=== PATIENT | male | born 1945 | race American Indian/Alaskan Native ===

== ENCOUNTER 2018-10-01 13:47 | Emergency (ER) | payer MEDICARE ==
--- NOTE | 2018-10-01 14:03 | Consultation ---
History of Present Illness Consult date: 10/01/18 Medications and Allergies Allergies Allergy/AdvReac Type Severity Reaction Status Date / Time No Known Allergies Allergy Unverified 10/01/18 13:50 - Assessment Assessment Interval: Baseline - Level of Consciousness 1a. Level of Consciousness: arousable/minor stimuli - LOC Questions 1b. LOC Questions: answers both correctly - LOC Command 1c. LOC Commands: performs tasks correctly - Best Gaze 2. Best Gaze: normal - Visual 3. Visual: no visual loss - Facial Palsy 4. Facial Palsy: normal symmetrical movement - Motor Arm 5a. Motor Arm Left: no movement 5b. Motor Arm Right: no movement - Motor Leg 6a. Motor Leg Left: no movement 6b. Motor Leg Right: no movement - Limb Ataxia 7. Limb Ataxia: absent - Sensory 8. Sensory: severe/total sensory loss - Best Language 9. Best Language: no aphasia - Dysarthria 10. Dysarthria: mild/moderate dysarthria - Extinction and Inattention 11. Extinction/Inattention: no abnormality - Scoring Total Score: 20 Stroke Severity: Moderate to Severe Stroke Assessment and Plan Date of Service 10/01/2018 [facility] Consult [facility] Comments: Last time known well: _ 09/30/18 23:30 Door time: _1347 [facility] contacted: _1337 [facility] at bedside: _1344 NIHSS assessment time: _1400 consult end time: _1415 Impression: diffuse upper and lower extremity weakness bilaterally concerning for spinal cord damage, less likely to be a CVA Does meet Large Vessel Occlusion (LVO) screening criteria (Aphasia, Neglect, Gaze deviation/preference, Dense hemiparesis, or Visual field deficits on exam), therefore advanced imaging (CTA head and neck and CTP brain) is indicated. Differential Diagnosis: 1. Cardioembolic stroke 2. Small vessel disease/ lacune 3. Thromboembolic, [id number] mechanism 4. Hypercoagulable state-related infarct 5. Transient ischemic attack 6. Thrombotic mechanism, large artery disease tPA decision and other recommendations: _ Patient is not a tPA candidate Head CT did not show any acute hemorrhage. reviewed report (if available) and images Reason: _ last time known well>4.5 hours Based on the results of CTA head and neck and (if needed) CTP brain, will determine presence of Large Vessel Occlusion and eligibility for mechanical thrombectomy. Recommendations STAT C spine CT dysphagia screen ASA if no contraindications head of bed flat IV fluids NS Stroke work up with: noncontrast brain MRI, 2D ECHO, lipid panel, HbA1c (Goal LDL<70, HbA1c<7) inpatient neurology consultation Inpatient stroke evaluation as per Neurology/ Internal Medicine Discussed with ED physician/medical staff Please contact [facility] Navigator to reach me if further questions/concerns arise. Reason for Stroke Alert and History of Present Illness: _ Patient is a(n) 73 years old male , with history of hypertension, Diabetes Mellitus last known well: 09/30/18 23:30 at about 13:30 family called EMS because they found him on the floor moaning Blood Pressure: 150/72 Review of Systems: Constitutional: Negative except as documented in history of present illness. Eye: Negative except as documented in history of present illness. Ear/Nose/Mouth/Throat: Negative except as documented in history of present illness. Respiratory: Negative except as documented in history of present illness. Cardiovascular: Negative except as documented in history of present illness. Gastrointestinal: Negative except as documented in history of present illness. Musculoskeletal: Negative except as documented in history of present illness. Neurologic: Negative except as documented in history of present illness. Examination: NIHSS Details documented in the note ___ 20 --------- Medical Decision Making: - Extensive number of diagnosis or management options are considered above. - Extensive amount of complex data reviewed. - High risk of complication and/or morbidity or mortality are associated with differential diagnostic considerations above. - There may be Uncertain outcome and increased probability of prolonged functional impairment or high probability of severe prolonged functional impairment associated with some of these differential diagnoses. Medical Data Reviewed: 1.Data reviewed include clinical labs, radiology, Medical Tests; 2.Tests results discussed w/performing or interpreting physician; 3.Obtaining/reviewing old medical records; 4.Obtaining case history from another source; 5.Independent review of image, tracing or specimen. When possible Patient/family were informed the Neurology Consult would happen via TeleHealth consult by way of interactive audio and video telecommunications and consented to receiving care in this manner. Case discussed with the Medical staff. Critical Care notation: I was called to see this critical patient emergently. I personally evaluated this critical patient for acute stroke evaluation and determining their eligibility for IV Alteplase and interventional therapies. I have spent approximately _31_ minutes with the patient, including time at bedside, time discussing the case with other physicians, reviewing plan of care, and time independently reviewing the records and scans.
[2018-10-01 14:20] LABS: Basophils % (Auto) 0.3 % (0.0-1.8); Eosinophils % (Auto) 0.2 % (0.0-4.3); Hemoglobin 10.1 gm/dl (11.8-15.2); Lymphocytes # (Auto) 0.5 K/mm3 (1.2-5.4); Lymphocytes % (Auto) 7.6 % (13.4-35.0); Mean Corpuscular HGB Conc 34 % (32-34); Mean Corpuscular Volume 94 fl (84-94); Monocytes # (Auto) 0.3 K/mm3 (0.0-0.8); Monocytes % (Auto) 5.2 % (0.0-7.3); Platelet Count 139 K/mm3 (140-440); Red Blood Count 3.21 M/mm3 (3.65-5.03); Red Cell Distribution Width 12.9 % (13.2-15.2)
--- NOTE | 2018-10-01 14:20 | Cat Scan Report ---
CT HEAD WITHOUT CONTRAST INDICATION : MAIN: CODE STROKE TECH NOTES: Pt unresponsive, found down, chewing on t eeth, last known well time unknown. . TECHNIQUE: Axial imaging performed from the skull apex through the skull base without the use of con trast. All CT scans at this location are performed using CT dose reduction for ALARA by means of aut omated exposure control. COMPARISON: None FINDINGS: Parenchyma: No acute intracranial hemorrhage or parenchymal abnormality. Ventricles: Ventricles are normal in size and appear symmetric. Soft tissues: Soft tissues including the orbits appear normal. Bones: No acute osseous abnormality. Sinuses: Sinuses and mastoid air cells are clear. IMPRESSION: No acute abnormality. These findings were discussed with Dr. Cornelius in the emergency department at 1413 hours EST. Signer Name: Marco Tsang Jr, MD Signed: 10/01/2018 2:15 PM Workstation Name: [id number]
[2018-10-01 14:28] LABS: INR 1.1 (0.87-1.13)
[2018-10-01 14:29] LABS: Partial Thromboplastin Time 28.8 Sec. (24.2-36.6); Thrombin Time 16.1 Sec. (15.1-19.6)
--- NOTE | 2018-10-01 14:33 | Emergency Department Report ---
HPI - General Chief Complaint: Neuro Symptoms/Deficit Time Seen by Provider: 10/01/18 13:52 - HPI HPI: 73-year-old -Spanish male presents to the emergency department via EMS from home as a code stroke. The patient was last seen normal last night around 11:30 PM. Apparently the patient had a fall trying to get back into bed this morning, around 11 AM, and was unable to get back up off the floor. He has bilateral upper extremity weakness/paralysis, some areas of numbness, and pain across his shoulders. He has a past medical history of hypertension and diabetes. He did not receive anything for her symptoms prior to arrival today. ED Past Medical Hx - Past Medical History Previous Medical History?: Yes Hx Hypertension: Yes Hx Diabetes: Yes - Medications Home Medications: Home Medications Medication Instructions Recorded Confirmed Last Taken Type Aspirin [Adult Aspirin] 81 mg PO DAILY 10/01/18 10/01/18 Unknown History Carvedilol [Coreg] 6.25 mg PO BID 10/01/18 10/01/18 Unknown History Losartan [Cozaar] 100 mg PO QDAY 10/01/18 10/01/18 Unknown History methIMAzole [Tapazole] 5 mg PO QDAY 10/01/18 10/01/18 Unknown History ED Review of Systems ROS: Stated complaint: NEURO ISSUES Other details as noted in HPI Comment: All other systems reviewed and negative Constitutional: denies: chills, fever Eyes: denies: eye pain, vision change ENT: denies: ear pain, throat pain Respiratory: denies: cough, shortness of breath Cardiovascular: denies: chest pain, palpitations Gastrointestinal: denies: abdominal pain, vomiting Genitourinary: denies: dysuria, discharge Musculoskeletal: arthralgia, myalgia Skin: denies: rash, lesions Neurological: weakness, numbness Physical Exam - Physical Exam Vital Signs: Vital Signs 10/01/18 10/01/18 14:05 14:08 Pulse Rate 53 L Respiratory 16 Rate Blood Pressure 170/72 [Right] O2 Sat by Pulse 99 Oximetry Physical Exam: GENERAL: Patient is ill-appearing. HENT: Normocephalic. Atraumatic. Patient has moist mucous membranes. EYES: Extraocular motions are intact. Pupils equal reactive to light bilaterally. NECK: Supple. Trachea is midline. CHEST/LUNGS: Clear to auscultation. There is no respiratory distress noted. HEART/CARDIOVASCULAR: Regular. There is no tachycardia. There is no murmur. ABDOMEN: Abdomen is soft, nontender. Patient has normal bowel sounds. There is no abdominal distention. SKIN: Skin is warm and dry. NEURO: The patient is awake, alert, and oriented. The patient is cooperative. Patient has mild to moderate dysarthria. The patient has almost no movement to the bilateral upper and lower extremities. Positive bilateral Babinski reflex. Subjective decreased sensation to the bilateral upper and lower extremities. MUSCULOSKELETAL: There is no tenderness or deformity. There is no evidence of acute injury. ED Course Vital Signs 10/01/18 10/01/18 14:05 14:08 Pulse Rate 53 L Respiratory 16 Rate Blood Pressure 170/72 [Right] O2 Sat by Pulse 99 Oximetry - Consultations Consultation #1: 10/01/18 14:34 The patient was seen by the telemedicine neurologist, Dr Crump, as soon as the patient returned from CT scan. The patient was evaluated and the neurologist did not feel that the patient was a TPA candidate as the last known well time was last night around 11:30 PM. He recommends a CT scan of the cervical spine without contrast, as well as a CT scan of the head and neck with angiography. Consultation #2: 10/01/18 17:49 At first, I spoke with the neurologist at [facility], Dr. López, regarding the patient's presentation and ER course. There were not any beds available at [facility] so he recommended contacting [facility]. I spoke with the stroke attending exceptional needs teacher, Dr. Max Dong. He was able to speak with Dr. López, as well as the ER doctor, and the patient will be a ER to ER transfer. They have MRI capability until about 9 PM so we will attempt expedient transfer. The patient has been accepted by both Dr. Dong and the ER doctor, Dr. Dowd. ED Medical Decision Making - Lab Data Result diagrams: 10/01/18 14:05 10/01/18 14:05 - EKG Data -: EKG Interpreted by Or EKG shows normal: sinus rhythm, axis, intervals, QRS complexes, ST-T waves (early repolarization) Rate: bradycardia (54 bpm) - EKG Data When compared to previous EKG there are: previous EKG unavailable Interpretation: other (sinus bradycardia, normal axis, normal intervals, early repolarization) - Radiology Data Radiology results: report reviewed CT HEAD WITHOUT CONTRAST INDICATION : MAIN: CODE STROKE TECH NOTES: Pt unresponsive, found down, chewing on teeth, last known well time unknown. . TECHNIQUE: Axial imaging performed from the skull apex through the skull base without the use of contrast. All CT scans at this location are performed using CT dose reduction for ALARA by means of automated exposure control. COMPARISON: None FINDINGS: Parenchyma: No acute intracranial hemorrhage or parenchymal abnormality. Ventricles: Ventricles are normal in size and appear symmetric. Soft tissues: Soft tissues including the orbits appear normal. Bones: No acute osseous abnormality. Sinuses: Sinuses and mastoid air cells are clear. IMPRESSION: No acute abnormality. CT CERVICAL SPINE WITHOUT CONTRAST INDICATION: fall, neck pain. TECHNIQUE: Axial imaging performed through the cervical without the use of contrast. Sagittal and coronal reconstructed images were also reviewed. All CT scans at this location are performed using CT dose reduction for ALARA by means of automated exposure control. COMPARISON: None FINDINGS: Alignment: There is 2 mm retrolisthesis of C3 with respect to C4 which appears to be secondary to degenerative facet arthropathy. The remaining cervical vertebra are normal in alignment. Bones: There is no acute osseous abnormality. Mild multilevel discogenic DJD is present which is most pronounced at C3-4. Moderate left C3-4 facet arthropathy. Soft tissues: No acute or significant incidental soft tissue abnormality. IMPRESSION: Cervical spondylosis as described. No evidence for acute injury. CTA head with and without IV contrast. CLINICAL HISTORY: Cerebrovascular accident, unresponsive. Technique: Multiple contiguous postcontrast CT images of the head were obtained at 0.63 mm intervals.3 plane MIP reconstructions were obtained. Precontrast localizing images were also performed. CT scans at this location are performed using the CT dose reduction for ALARA by means of automated exposure control. FINDINGS: No previous exams available for comparison. There is extensive atherosclerotic calcification involving the distal internal carotid arteries with mild segmental narrowing by NASCET criteria. There is no significant focal stenosis involving the visualized vertebral basilar system or proximal cerebral branches. There are incidental infundibulum of the posterior communicating arteries bilaterally at. However, there is a small focal outpouching directed posteriorly slightly more distally on the left measures approximately 2 mm. This finding would be indicative of small aneurysm possibly arising from the origin of the anterior choroidal artery. There is no further at CTA evidence of intracranial aneurysm. 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 The superior sagittal sinus opacifies with contrast. There is moderate mucosal thickening within the left axillary sinus at. Milder scattered findings are seen within the ethmoid and left frontal sinuses. There is heterogeneous appearance of the frontal calvarium, greater on the right with foci of sclerosis at. Findings are nonspecific with mild hyperostosis frontalis interna. No erosive changes of the cortex are identified. All CT scans at this location are performed using the CT dose reduction for [employer] by means of automated exposure control. IMPRESSION: There is atherosclerotic calcification involving the distal internal carotid arteries with mild segmental narrowing bilaterally as described. 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 . CTA neck with and without contrast CLINICAL HISTORY: Unresponsive, fall. Technique: Multiple contiguous postcontrast axial CT images of the neck were obtained at 2.5 mm intervals. 3 plane MIP reconstructions were produced. Precontrast localizing images were also performed. All CT scans at this location are performed using the CT dose reduction for [employer] by means of automated exposure control. FINDINGS: The motion and beam hardening significantly degrades the image quality. However, there is atherosclerotic plaque along the inferior proximal left ICA with mild, 30-40% stenosis by NASCET criteria. There is mild plaque involving the proximal right ICA without significant stenosis by NASCET criteria. The more distal left cervical ICAs are unremarkable. The vertebral arteries also appear to demonstrate appropriate caliber without significant focal stenosis or decreased flow. There is some developmental tortuosity of the right cervical vertebral artery. The arch of vessels are grossly unremarkable. The cervical vessels. Demonstrate fairly smooth contours without clear CT evidence of dissection. There is heterogeneous prominence of the left lobe of the thyroid gland indicative of goiter. There is associated mild degree of mass effect upon the trachea without significant stenosis. There are multilevel degenerative changes involving cervical spine. All CT scans at this location are performed using the CT dose reduction for [employer] by means of automated exposure control. IMPRESSION: This mild atherosclerotic plaque involving proximal internal carotid arteries with 30-40% stenosis on the left by NASCET criteria. - Medical Decision Making This patient presents as a code stroke with quadriplegia and dysarthria. Stat CT scan of the head was done without contrast that did not show any bleed, shift, mass, ischemia, or any other acute processes. CT scan of the cervical spine also did not show any fracture, subluxation, signs of any edema, or any other acute process. The patient's labs were mostly unremarkable except for a blood sugar of about 300. There was no elevation in his anion gap and the blood sugar came down to about 220 with a very small amount of insulin. EKG did not show any signs of ST elevation SD or dysrhythmia. The telemedicine neurologist had recommended CT angiography studies to be done of the head and neck. These were completed but they did not show any signs of any thrombus, occlusion, stenosis, or etiology of the patient's symptoms. Patient was initially found down on the ground and his room. However the patient denies falling or any significant trauma and says that he got weak and dizzy and laid down on the ground. Even though the patient has the acute neurological deficits, he is awake, alert, oriented and there are no physical signs of trauma seen. However this patient appears atypical for a stroke given the immediate quadriplegia. It also appears atypical for some type of cord compression or transverse myelitis as he has the dysarthria. Nonetheless, the patient needs to be at a facility where there is a dedicated neurology team, neurosurgery if necessary, and I believe the patient needs a stat MRI of the brain and cervical spine. Unfortunately, even though the patient presented to the emergency department at around 1:30 PM, he has been unable to get an MRI starting at about 3 PM today until tomorrow morning. For all these reasons, the patient requires transfer to another facility. I first spoke with [facility] but they do not have any beds available. I then spoke with [facility], who has accepted the patient has an ER to ER transfer. We will able to get all of his imaging studies on a disc, h istory is available, and the patient out of the emergency department for transfer, within 30 minutes of acceptance. The patient's vital signs were stable throughout his ED course. He is protecting his own airway without any signs of any respiratory distress or hypoxia. The patient and his family have been updated during his entire ED course regarding the lab results, imaging results and eventually the plan for transfer. They understand and agree to the plan. - Differential Diagnosis CVA, cord compression, transverse myelitis, acute flaccid myelitis Critical Care Time: Yes Critical care time in (mins) excluding proc time.: 35 Critical care attestation.: If time is entered above; I have spent that time in minutes in the direct care of this critically ill patient, excluding procedure time. Critical care time was spent on this patient and doing his initial evaluation, multiple re-eval uations, ordering and interpretation of labs and imaging, discussion with the telemedicine neurologist, discussion with the radiologist, discussion with multiple different neurologists at the possible transfer and ultimately the accepting facility, multiple discussions with the patient and his family. Critical Care Time: 35 minutes ED Disposition Clinical Impression: Dysarthria, Quadriplegia, Hyperglycemia Disposition: DC/TX-70 ANOTHER TYPE HLTHCARE Is pt being admited?: No Condition: Serious Referrals: PRIMARY CARE, [Primary Care Provider] - 3-5 Days Time of Disposition: 17:53 - Assessment Assessment Interval: Baseline - Level of Consciousness 1a. Level of Consciousness: arousable/minor stimuli - LOC Questions 1b. LOC Questions: answers both correctly - LOC Command 1c. LOC Commands: performs tasks correctly - Best Gaze 2. Best Gaze: normal - Visual 3. Visual: no visual loss - Facial Palsy 4. Facial Palsy: normal symmetrical movement - Motor Arm 5a. Motor Arm Left: no movement 5b. Motor Arm Right: no movement - Motor Leg 6a. Motor Leg Left: no movement 6b. Motor Leg Right: no movement - Limb Ataxia 7. Limb Ataxia: absent - Sensory 8. Sensory: severe/total sensory loss - Best Language 9. Best Language: no aphasia - Dysarthria 10. Dysarthria: mild/moderate dysarthria - Extinction and Inattention 11. Extinction/Inattention: no abnormality - Scoring Total Score: 20 Stroke Severity: Moderate to Severe Stroke
[2018-10-01 14:43] LABS: BUN/Creatinine Ratio 20; Blood Urea Nitrogen 22 mg/dL (9-20); Hemolysis Index 9
[2018-10-01 14:46] LABS: Alanine Aminotransferase < 5 units/L (7-56); Albumin < 0.2 g/dL (3.9-5); Bilirubin,Direct < 0.2 mg/dL (0-0.2)
--- NOTE | 2018-10-01 15:20 | XRay Report ---
CHEST 1 VIEW 10/01/2018 2:40 PM INDICATION / CLINICAL INFORMATION: fall. COMPARISON: None available. FINDINGS: SUPPORT DEVICES: None. HEART / MEDIASTINUM: No significant abnormality. LUNGS / PLEURA: No significant pulmonary or pleural abnormality. No pneumothorax. ADDITIONAL FINDINGS: No significant additional findings. IMPRESSION: 1. No acute findings. Signer Name: Jose Burris MD Signed: 10/01/2018 3:16 PM Workstation Name: [id number]
--- NOTE | 2018-10-01 15:44 | Cat Scan Report ---
CT CERVICAL SPINE WITHOUT CONTRAST INDICATION: fall, neck pain. TECHNIQUE: Axial imaging performed through the cervical without the use of contrast. Sagittal and c oronal reconstructed images were also reviewed. All CT scans at this location are performed using CT dose reduction for ALARA by means of automated exposure control. COMPARISON: None FINDINGS: Alignment: There is 2 mm retrolisthesis of C3 with respect to C4 which appears to be secondary to de generative facet arthropathy. The remaining cervical vertebra are normal in alignment. Bones: There is no acute osseous abnormality. Mild multilevel discogenic DJD is present which is mo st pronounced at C3-4. Moderate left C3-4 facet arthropathy. Soft tissues: No acute or significant incidental soft tissue abnormality. IMPRESSION: Cervical spondylosis as described. No evidence for acute injury. Signer Name: Marco Tsang Jr, MD Signed: 10/01/2018 3:40 PM Workstation Name: [id number]
--- NOTE | 2018-10-01 16:05 | Cat Scan Report ---
CTA neck with and without contrast CLINICAL HISTORY: Unresponsive, fall. Technique: Multiple contiguous postcontrast axial CT images of the neck were obtained at 2.5 mm inter vals. 3 plane MIP reconstructions were produced. Precontrast localizing images were also performed. A ll CT scans at this location are performed using the CT dose reduction for ALARA by means of automate d exposure control. FINDINGS: The motion and beam hardening significantly degrades the image quality. However, there is a therosclerotic plaque along the inferior proximal left ICA with mild, 30-40% stenosis by NASCET crite jett. There is mild plaque involving the proximal right ICA without significant stenosis by NASCET cri teria. The more distal left cervical ICAs are unremarkable. The vertebral arteries also appear to demonstrate appropriate caliber without significant focal steno sis or decreased flow. There is some developmental tortuosity of the right cervical vertebral artery. The arch of vessels are grossly unremarkable. The cervical vessels. Demonstrate fairly smooth contou rs without clear CT evidence of dissection. There is heterogeneous prominence of the left lobe of the thyroid gland indicative of goiter. There i s associated mild degree of mass effect upon the trachea without significant stenosis. There are mult ilevel degenerative changes involving cervical spine. All CT scans at this location are performed usi ng the CT dose reduction for ALARA by means of automated exposure control. IMPRESSION: This mild atherosclerotic plaque involving proximal internal carotid arteries with 30-40% stenosis on the left by NASCET criteria. Signer Name: Iván Barrett MD Signed: 10/01/2018 4:00 PM Workstation Name: [id number]
[2018-10-01] MEDS ORDERED: HumuLIN R IV ONE (16:29)
--- NOTE | 2018-10-01 16:41 | Cat Scan Report ---
CTA head with and without IV contrast. CLINICAL HISTORY: Cerebrovascular accident, unresponsive. Technique: Multiple contiguous postcontrast CT images of the head were obtained at 0.63 mm intervals. 3 plane MIP reconstructions were obtained. Precontrast localizing images were also performed. CT scan s at this location are performed using the CT dose reduction for ALARA by means of automated exposure control. FINDINGS: No previous exams available for comparison. There is extensive atherosclerotic calcificatio n involving the distal internal carotid arteries with mild segmental narrowing by NASCET criteria. Th ere is no significant focal stenosis involving the visualized vertebral basilar system or proximal ce rebral branches. There are incidental infundibulum of the posterior communicating arteries bilaterally at. However, th ere is a small focal outpouching directed posteriorly slightly more distally on the left measures gilmar roximately 2 mm. This finding would be indicative of small aneurysm possibly arising from the origin of the anterior choroidal artery. There is no further at CTA evidence of intracranial aneurysm. 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 The superior sagittal sinus opacifies with contrast. There is moderate mucosal thickening within t he left axillary sinus at. Milder scattered findings are seen within the ethmoid and left frontal sin uses. There is heterogeneous appearance of the frontal calvarium, greater on the right with foci of s clerosis at. Findings are nonspecific with mild hyperostosis frontalis interna. No erosive changes of the cortex are identified. All CT scans at this location are performed using the CT dose reduction f or ALARA by means of automated exposure control. IMPRESSION: There is atherosclerotic calcification involving the distal internal carotid arteries with mild segme ntal narrowing bilaterally as described. 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 . Signer Name: Iván Barrett MD Signed: 10/01/2018 4:37 PM Workstation Name: [id number]
[2018-10-01 17:51] VITALS: BP 141/63
== END 2018-10-01 18:35 | disposition other institution (70) ==
LOC: ED 13:47
DX: E11.65 Type 2 diabetes mellitus with hyperglycemia (principal); G82.50 Quadriplegia, unspecified; R47.1 Dysarthria and anarthria; I10 Essential (primary) hypertension; Z79.82 Long term (current) use of aspirin; Z79.899 Other long term (current) drug therapy; Z79.4 Long term (current) use of insulin
CPT/HCPCS: 36415; 70450; 70496; 70498; 71045; 72125; 80048; 80076; 82962; 84439; 84443; 84484; 85025; 85610; 85670; 85730; 93005; 93010; 96374; 99291; Q9967; J1815